=== PATIENT | male | born 1985 ===

== ENCOUNTER 2016-12-23 20:14 | Emergency (ER) | payer MEDICAID ==
[2016-12-23 20:23] VITALS: BP 138/95; TEMP 98.6; BMI 26.3
[2016-12-23 20:28] VITALS: PULSE 79; RESP 19; O2SAT 97
[2016-12-23] MEDS ORDERED: Fluorescein 1 mg Ophthalmic Strip OU ONE (21:21)
--- NOTE | 2016-12-23 21:32 | ED PDOC ---
Arrival/HPI - General Chief Complaint: Eye Problem Time Seen by Provider: 12/23/16 20:50 Historian: Patient - History of Present Illness Narrative History of Present Illness (Text): 12/23/16 21:31 A 31 year old male presents to the emergency department complaining of bilateral eye pain, right worse than left. Patient notes eyes are red, watery and itchy. He admits to sleeping with his contacts on last night. Patient denies any fever, chills, headache, dizziness, vision changes, nausea, vomiting , URI symptoms or any other complaints. PMD: Dr. Quiroz Time/Duration: Other (Today) Symptom Course: Unchanged Quality: Other Context: Home Past Medical History - Provider Review Nursing Documentation Reviewed: Yes - Cardiac Hx Cardiac Disorders: No - Pulmonary Hx Respiratory Disorders: No - Neurological Hx Neurological Disorder: No - HEENT Hx HEENT Disorder: No - Renal Hx Renal Disorder: No - Endocrine/Metabolic Hx Endocrine Disorders: No - Hematological/Oncological Hx Blood Disorders: No - Integumentary Hx Dermatological Disorder: No - Musculoskeletal/Rheumatological Hx Musculoskeletal Disorders: No - Gastrointestinal Hx Gastrointestinal Disorders: No - Genitourinary/Gynecological Hx Genitourinary Disorders: No - Psychiatric Hx Psychophysiologic Disorder: No Hx Substance Use: No - Anesthesia Hx Anesthesia: No Family/Social History - Physician Review Nursing Documentation Reviewed: Yes Family/Social History: No Known Family HX Smoking Status: Current Some Days Smoker Hx Alcohol Use: Yes Frequency of alcohol use: Socially Hx Substance Use: No Allergies/Home Meds Allergies/Adverse Reactions: Allergies No Known Allergies Allergy (Verified 12/23/16 20:23) Review of Systems - Physician Review All systems were reviewed & negative as marked: Yes - Review of Systems Constitutional: absent: Fevers, Night Sweats Eyes: Eye Pain (Bilateral eye pain, right more than left). absent: Vision Changes ENT: absent: TMJ Pain, Sore Throat, Rhinorrhea, Sinus Congestion Respiratory: absent: Cough Gastrointestinal: absent: Nausea, Vomiting Neurological: absent: Headache, Dizziness Physical Exam Vital Signs Reviewed: Yes Vital Signs Temp Pulse Resp BP Pulse Ox 12/23/16 20:23 98.6 F 79 19 138/95 H 97 12/23/16 20:22 98.6 F 96 H 17 138/95 H 99 Temperature: Afebrile Blood Pressure: Hypertensive Pulse: Tachycardic Respiratory Rate: Normal Appearance: Positive for: Well-Appearing, Non-Toxic, Comfortable Pain Distress: None Mental Status: Positive for: Alert and Oriented X 3 - Systems Exam Head: Present: Atraumatic, Normocephalic Pupils: Present: PERRL Extroacular Muscles: Present: EOMI, Other (visual acuity L eye 20/30 (with correction), R eye 20/200) Conjunctiva: Present: Injected (with watery discharge), Other (+corneal abrasion to the R eye) Ears: Present: Normal Mouth: Present: Moist Mucous Membranes Pharnyx: Present: Normal Neck: Present: Normal Range of Motion Neurological: Present: GCS=15, CN II-XII Intact, Speech Normal Skin: Present: Warm, Dry, Normal Color. No: Rashes Medical Decision Making ED Course and Treatment: 12/23/16 21:31 Impression: A 31 year old male with bilateral eye pain, redness, tearing and itchiness, right worse than left. Plan: -- Fluorescein eye exam -- Tdap -- Reassess and disposition Progress Notes: Patient notified of likely dx of corneal abrasion and conjunctivitis. Patient medicated with cipro eye drops to both eyes and naprosyn po. Advised to d/c contact lens wear until he is cleared by his eye doctor, use his glasses, avoid bright lights and the sun. Follow up with eye physician in 1-2 days without fail. Advised to take medication as prescribed. Return to the emergency room at any time for any new or worsening symptoms. Patient states he fully agrees with and understands discharge instructions. States that he agrees with the plan and disposition. Verbalized and repeated discharge instructions and plan. I have given the patient opportunity to ask any additional questions. - Medication Orders Current Medication Orders: Discontinued Medications Ciprofloxacin (Ciloxan 0.3% Ophth Soln) 1 drop OU STAT STA Stop: 12/23/16 22:04 Last Admin: 12/23/16 22:27 Dose: 1 drop Fluorescein Sodium (Uerqd-N-Dmrpq A.T.) 1 mg OU ONCE ONE Stop: 12/23/16 21:22 Last Admin: 12/23/16 22:29 Dose: 1 mg Naproxen (Anaprox Ds) 550 mg PO ONCE STA Stop: 12/23/16 22:05 Last Admin: 12/23/16 22:27 Dose: 550 mg Tetanus/Reduced Diphtheria/Acell Pertussis (Boostrix Vaccine Inj) 0.5 ml IM .ONCE ONE Stop: 12/23/16 22:22 - PA / ENERGY EFFICIENT SITE MANAGER / Resident Statement MD/DO has reviewed & agrees with the documentation as recorded. - Scribe Statement The provider has reviewed the documentation as recorded by the Uyenibe Madhuri Haque Provider Scribe Attestation: All medical record entries made by the Scribe were at my direction and personally dictated by me. I have reviewed the chart and agree that the record accurately reflects my personal performance of the history, physical exam, medical decision making, and the department course for this patient. I have also personally directed, reviewed, and agree with the discharge instructions and disposition. Disposition/Present on Arrival - Present on Arrival Any Indicators Present on Arrival: No History of DVT/PE: No History of Uncontrolled Diabetes: No Urinary Catheter: No History of Decub. Ulcer: No History Surgical Site Infection Following: None - Disposition Have Diagnosis and Disposition been Completed?: Yes Diagnosis: Corneal abrasion due to contact lens, Conjunctivitis Disposition: HOME/ ROUTINE Disposition Time: 22:00 Patient Plan: Discharge Condition: STABLE Discharge Instructions (ExitCare): Corneal Abrasion (ED), Conjunctivitis (ED) Print Language: ARABIC Additional Instructions: Thank you for letting us take care of you today. You were treated for corneal abrasion, conjunctivitis. The emergency medical care you received today was directed at your acute symptoms. If you were prescribed any medication, please fill it and take as directed. It may take several days for your symptoms to resolve. Return to the Emergency Department if your symptoms worsen, do not improve, or if you have any other problems. Please contact your eye doctor in 2 days for re-evaluation and follow up / or call one of the physicians/clinics you have been referred to that are listed on the Patient Visit Information form that is included in your discharge packet. Bring any paperwork you were given at discharge with you along with any medications you are taking to your follow up visit. Our treatment cannot replace ongoing medical care by a primary care provider (PCP) outside of the emergency department. Thank you for allowing the [facility] team to be part of your care today. Prescriptions: Ciprofloxacin 0.3% [Ciloxan 0.3% Ophth SOLN] 1 drop EACHEYE QID #1 bottle Ketorolac Tromethamine [Acular 0.5%] 1 drop EACHEYE QID #1 bottle Naproxen 500 mg PO BID #30 tab Referrals: Corey Garces MD [Staff Provider] - Follow up with primary Werner Quiroz MD [Primary Care Provider] - Follow up with primary Forms: Budge (Somali)
[2016-12-23] MEDS ORDERED: Ciprofloxacin 0.3% OPTH SOLN OU STA (22:03)
[2016-12-23] MEDS ORDERED: Naproxen 550 mg Tab PO STA (22:04)
[2016-12-23] MEDS ORDERED: TDAP Vaccine 0.5 mL Syr IM ONE (22:21)
== END 2016-12-23 22:20 | disposition home or self-care (01) ==
LOC: ED 20:14
DX: H18.821 Corneal disorder due to contact lens, right eye (principal); H10.9 Unspecified conjunctivitis